=== PATIENT | male | born 1945 | race Caucasian/White ===

== ENCOUNTER 2022-05-20 12:59 | Outpatient (CLI) | payer MEDICARE, SELFPAY ==
--- NOTE | ~2022-05-20 | US_ITS ---
EXAMINATION: US venous doppler [facility] DATE: 05/20/2022 14:08 INDICATION: Bilateral lower limb edema TECHNIQUE: Ron scale images without and with compression and Doppler images of the bilateral lower e xtremity veins were obtained. COMPARISON: None FINDINGS: The right common femoral vein, profunda femoral vein, femoral vein, popliteal vein, peroneal trunk, p osterior tibial veins, and greater saphenous vein are patent. There is superficial thrombosis of the varicose veins of the right lower limb. The left common femoral vein, profunda femoral vein, femoral vein, popliteal vein, peroneal trunk, po sterior tibial veins, and greater saphenous vein are patent. IMPRESSION: 1. No evidence of deep venous thrombosis. 2. Superficial thrombosis of varicose veins of the right lower limb. Reviewed, dictated and finalized at location B. [employer]
== END 2022-05-20 13:00 | disposition home or self-care (01) ==
PROVIDERS: PCP Family Medicine; Visit Provider Internal Medicine Cardiovascular Disease
DX: I82.811 Embolism and thrombosis of superficial veins of right lower extremity (principal); I48.91 Unspecified atrial fibrillation; R60.9 Edema, unspecified
CPT/HCPCS: 93970

== ENCOUNTER 2022-08-20 15:40 | Outpatient (CLI) | payer MEDICARE, SELFPAY ==
--- NOTE | ~2022-08-20 | US_ITS ---
EXAMINATION: US venous doppler [facility] DATE: 08/20/2022 16:21 INDICATION: Embolism and thrombosis of superficial veins of the right lower limb TECHNIQUE: Grayscale ultrasound images without and with compression and Doppler ultrasound images of the right lower extremity veins were obtained. COMPARISON: None. FINDINGS: The visualized portions of right common femoral vein, profunda (deep) femoral vein, femoral vein, pop liteal vein, peroneal trunk, posterior tibial veins, peroneal veins, gastrocnemius vein and greater s aphenous vein outflow are patent. Again seen is a noncompressible thrombosed superficial vein with no internal flow on color Doppler, likely the lesser saphenous vein at the posterior right calf with so me shadowing calcification suggesting this is chronic. IMPRESSION: 1. No deep venous thrombosis in the right lower limb. 2. 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 Reviewed, dictated and finalized at location L. IMPRESSION: 1. No deep venous thrombosis in the right lower limb. 2. Chronic thrombus of the right lesser saphenous vein at the posterior right c halfway.
== END 2022-08-20 15:41 | disposition home or self-care (01) ==
PROVIDERS: PCP Family Medicine; Visit Provider Internal Medicine Cardiovascular Disease
DX: I82.811 Embolism and thrombosis of superficial veins of right lower extremity (principal)
CPT/HCPCS: 93971

== ENCOUNTER → 2022-09-11 08:25 | Outpatient (CLI) | payer MEDICARE, SELFPAY ==
--- NOTE | ~2022-09-11 | US_ITS ---
EXAMINATION: US carotid duplex BI DATE: 09/11/2022 08:47 INDICATION: Carotid artery stenosis TECHNIQUE: Grayscale, color Doppler, and pulsed Doppler images of the cervical carotid arteries were obtained. The degree of vessel stenosis is placed in one of the following categories: normal, <50%, 5 0-69%, >=70% but less than near-occlusion, near-occlusion, or total occlusion. Note that percent sten osis relative to normal distal artery lumen diameter is indirectly measured from velocity measurement s as described by Tacho, et al. Radiology 2003; 229:[id number]. COMPARISON: None. FINDINGS: RIGHT: The right common carotid artery (CCA) peak systolic velocity (PSV) is 82 cm/s. The right internal car otid artery (ICA) PSV is 66 cm/s. The right ICA end-diastolic velocity (EDV) is 24 cm/s. The right IC A/CCA PSV ratio is 0.8. Grayscale and color Doppler images yield an estimate of <50% diameter reducti on from plaque in the ICA. The external carotid artery (ECA) PSV is 93 cm/s. There is antegrade flow in the right vertebral artery. LEFT: The left CCA PSV is 104 cm/s. The left ICA PSV is 79 cm/s. The left ICA EDV is 38 cm/s. The left ICA/ CCA PSV ratio is 0.8. Grayscale and color Doppler images yield an estimate of <50% diameter reduction from plaque in the ICA. The ECA PSV is 93 cm/s. There is antegrade flow in the left vertebral artery . IMPRESSION: 1. <50% stenosis in the right internal carotid artery. 2. <50% stenosis in the left internal carotid artery. Reviewed, dictated and finalized at location A.
== END ==
PROVIDERS: PCP Family Medicine; Visit Provider Physician Assistant
DX: I65.23 Occlusion and stenosis of bilateral carotid arteries (principal)
CPT/HCPCS: 93880

== ENCOUNTER → 2022-10-12 11:35 | Outpatient (CLI) | payer MEDICARE, SELFPAY ==
--- NOTE | ~2022-10-12 | XR_ITS ---
Right Knee Technique: AP, lateral, and sunrise views were obtained. Clinical History: Pain Findings: No fracture or dislocation is seen. Osseous alignment is anatomic. Mild tricompartmental de generative changes present. Soft tissues are unremarkable. No joint effusion is seen. Impression: Mild tricompartmental osteoarthritis. Reviewed, dictated and finalized at location . Impression: Mild tricompartmental osteoarthritis.
== END ==
PROVIDERS: PCP Family Medicine; Visit Provider Physician Assistant
DX: M17.11 Unilateral primary osteoarthritis, right knee (principal)
CPT/HCPCS: 73562

== ENCOUNTER 2023-05-07 09:32 | Outpatient (CLI) | payer OTHER, SELFPAY ==
[2023-05-07 12:05] LABS: Basophils Absolute Auto 0.1 K/mm3 (0.0-0.1); Basophils Percent Auto 1.3 % (0.2-1.2); Eosinophils Absolute Auto 0.3 K/mm3 (0-0.3); Eosinophils Percent Auto 4.8 % (0-4.4); Hematocrit 43.3 % (42.0-52.0); Hemoglobin 13.6 g/dL (14.0-18.0); Immature Granulocyte Absolute 0.01 K/mm3 (0.00-0.031); Immature Granulocyte Percent A 0.2 % (0-0.5); Lymphocytes Absolute Auto 2.54 K/mm3 (0.9-3.2); Lymphocytes Percent Auto 42.3 % (18.3-44.2); Mean Corpuscular HGB Conc 31.4 g/dl (32-36); Mean Corpuscular Hemoglobin 30.5 pg (26-34); Mean Corpuscular Volume 97.1 fl (80-100); Mean Platelet Volume 10.9 fl (7.4-10.4); Monocytes Absolute Auto 0.7 K/mm3 (0.1-0.6); Monocytes Percent Auto 10.8 % (2.6-8.5); Neutrophils Absolute Auto 2.4 K/mm3 (1.3-6.7); Neutrophils Percent Auto 40.6 % (45.5-73.1); Platelet Count Result 206 k/mm3 (150-375); Red Blood Count 4.46 M/mm3 (4.6-6.20); Red Cell Distribution Width 13.7 % (11.5-14.5)
[2023-05-07 12:26] LABS: Alanine Aminotransferase 35 U/L (6-50); Albumin Level 3.8 g/dL (3.5-5.1); Alkaline Phosphatase 50 U/L (38-126); Anion Gap 4 mmol/L (8-16); Aspartate Amino Transferase 48 U/L (17-59); Bilirubin,Total 0.7 mg/dL (0.2-1.3); Blood Urea Nitrogen 16 mg/dL (9-20); Calcium 8.7 mg/dL (8.4-10.2); Carbon Dioxide 27 mmol/L (22-30); Chloride 108 mmol/L (98-107); Cholesterol 209 mg/dL (0-200); Estimated Glomerular Filt Rate > 60; Glucose 86 mg/dL (65-110); HDL Direct 63 mg/dL; Potassium 4.4 mmol/L (3.4-5.0); Sodium 139 mmol/L (137-145); Triglycerides 49 mg/dL (<150)
[2023-05-07 12:39] LABS: LDL Cholesterol Direct 118 mg/dL
[2023-05-07 12:58] LABS: Prostate Specific Antigen 0.7 ng/mL (< OR = 4.0)
== END 2023-05-07 09:33 | disposition home or self-care (01) ==
PROVIDERS: PCP Family Medicine; Visit Provider Family Medicine
DX: Z12.5 Encounter for screening for malignant neoplasm of prostate (principal); I48.19 Other persistent atrial fibrillation; I65.29 Occlusion and stenosis of unspecified carotid artery
CPT/HCPCS: 36415; 80053; 80061; 84153; 84443; 85025; G0103

== ENCOUNTER 2023-07-03 12:43 | Emergency (ER) | payer OTHER, SELFPAY ==
--- NOTE | 2023-07-03 12:57 | ED.CHESTPAIN ---
HPI - Chest Pain General Chief Complaint: Chest Pain Stated Complaint: Heart attack symptoms Time Seen by Provider: 07/03/23 12:55 Source: patient Mode of arrival: ambulatory Limitations: no limitations History of Present Illness HPI narrative: 77 yo M presents with c/o L sided CP radiating to L arm and feeling light headed for past few hours. Denies N/V. Hx of afib. pt states a fib controlled and does not take any medications for it . All systems reviewed and negative except as noted above. Related Data Home Medications Medication Instructions Recorded Confirmed multivitamin 1 tablet PO DAILY 05/12/19 07/03/23 cod liver oil 5 ml PO DAILY 05/14/20 07/03/23 Allergies Allergy/AdvReac Type Severity Reaction Status Date / Time Penicillins Allergy Unknown Unknown Verified 07/03/23 12:57 Review of Systems Review of Systems: CONSTITUTIONAL: Denies fever, chills, or sweats. EYES: Denies visual changes, redness, or discharge. ENT: Denies rhinorrhea, congestion, sore throat, or otalgia. CARDIOVASCULAR: Reports chest pain. Denies palpitations, or edema. RESPIRATORY: Denies cough or dyspnea. GASTROINTESTINAL: Denies abdominal pain, nausea, vomiting, or diarrhea. GENITOURINARY: Denies dysuria or hematuria. SKIN: Denies rash or itching. MUSCULOSKELETAL: Denies back pain, joint pain, or myalgia. NEUROLOGIC: Denies headache, numbness, or weakness. PSYCHIATRIC: Denies anxiety or depression. All other systems reviewed are negative, except as documented in HPI. [facility] Past Medical History Medical History Memory change Tendonitis of left rotator cuff Family History Family History Mother Family history of malignant neoplasm of breast in first degree relative Social History Social History (Updated 03/02/23 @ 14:59 by Carol Stevenson MA) Smoking status: Never smoker Alcohol intake: current Drinks per week: 14 Substance use: never Substance use type: does not use Lack of Transportation: No Lack of Food: Never True Current Housing: Decline to Answer Concerned About Future Housing: Decline to Answer Difficulty Paying Gas/Electric Bills: Decline to Answer Difficulty Paying for Meds: Decline to Answer Currently Unemployed: Decline to Answer Education: Decline to Answer Difficulty w/ Childcare or Family Care: Decline to Answer Comments At time of signature, agree with nursing past medical, surgical, social and family history. There is no relevant family history pertinent to the presenting complaint. Exam Narrative: GENERAL: This is a well-nourished, well-developed patient, in no apparent distress. HEAD: normocephalic, atraumatic. EYES: PERRL. Sclera clear/white. Vision is grossly intact. EARS: External ears normal NOSE: External nose normal NECK: Neck supple, non-tender without lymphadenopathy, masses or thyromegaly. CARDIOVASCULAR: Irregular rhythm without murmurs, gallops, or rubs. RESPIRATORY: Clear to auscultation. Breath sounds equal bilaterally. No wheezes, rales, or rhonchi. SKIN: warm, Dry, intact with no suspicious lesions or rash, good texture and turgor. NEURO: awake, alert, and oriented to person, place and time. There were no obvious focal neurologic abnormalities. EXTREMITIES: No joint tenderness, effusion, or edema noted. Course Course Level of Care: Express Care Visit Transfer Transfered to: [facility] Transportation: Other (Private car) Transfer rationale: Transferring patient to ER to rule out CA. EKG AFib. Accepting physician: Dr. Ribeiro MDM - Chest Pain MDM Narrative Medical decision making narrative: EKG atrial fib, HR 77, no ischemia. HR on monitor 80s to 100s. transferring to ER for further evaluation of CP. Discharge Plan Discharge Clinical Impression: Chest pain, Atrial fibrillation Patient Disposition: Acute
[2023-07-03 12:58] VITALS: BP 160/107; PULSE 86; RESP 18; TEMP 37.6; O2SAT 99
--- NOTE | 2023-07-03 12:59 | ECG_ITS ---
Measurements Intervals [place] Rate: 77 P: [place]: 0 QRS: 51 QRSD: 100 T: 0 QT: 380 QTc: 432 Interpretive Statements ATRIAL FIBRILLATION INCOMPLETE RIGHT BUNDLE BRANCH BLOCK NONSPECIFIC ST-T WAVE ABNORMALITY- INFERIOR LEADS BASELINE ARTIFACT- I, II, AVR, AVL, AVF ABNORMAL ECG NO PREVIOUS ECG AVAILABLE FOR COMPARISON Electronically Signed On 07-03-2023 17:50:15 CDT by Sai Rasmussen D.O.
[2023-07-03 13:09] VITALS: BP 160/107; PULSE 86; RESP 18; TEMP 37.6; O2SAT 99
== END 2023-07-03 13:00 | disposition short-term general hospital (02) ==
PROVIDERS: Emergency Provider Nurse Practitioner Family; PCP Family Medicine
DX: R07.9 Chest pain, unspecified (principal); I48.91 Unspecified atrial fibrillation; I45.10 Unspecified right bundle-branch block
CPT/HCPCS: 93005; 99213; G0463

== ENCOUNTER 2023-07-03 13:24 | Inpatient (IN) | payer OTHER, SELFPAY ==
[2023-07-03] VITALS (17 sets, daily range): BP systolic 134–207; BP diastolic 79–179; PULSE 57–87; RESP 14–23; TEMP 36.1–36.6; O2SAT 95–100
--- NOTE | ~2023-07-03 | XR_ITS ---
EXAMINATION: XR chest 2V Exam Date/Time: 07/03/2023 13:53 CDT HISTORY: Chest Pain. Dizzy Comparison: None. RESULT: Lines, tubes, and devices: None. Lungs and pleura: Mild senescent change, otherwise clear. Cardiomediastinal silhouette: Normal heart size. Arch calcification. Other: No acute osseous or upper abdominal finding. IMPRESSION: No acute cardiopulmonary process. Reviewed, dictated and finalized at location K.
--- NOTE | 2023-07-03 13:25 | ECG_ITS ---
Measurements Intervals [place] Rate: 72 P: [place]: 0 QRS: 31 QRSD: 92 T: 25 QT: 394 QTc: 431 Interpretive Statements ATRIAL FIBRILLATION INCOMPLETE RIGHT BUNDLE BRANCH BLOCK ABNORMAL ECG COMPARED TO ECG 07/03/2023 11:53:28 NO SIGNIFICANT CHANGES Electronically Signed On 07-03-2023 17:50:33 CDT by Sai Rasmussen D.O.
[2023-07-03 13:41] LABS: Basophils Absolute Auto 0.1 K/mm3 (0.0-0.1); Basophils Percent Auto 0.8 % (0.2-1.2); Eosinophils Absolute Auto 0.1 K/mm3 (0-0.3); Eosinophils Percent Auto 0.6 % (0-4.4); Hematocrit 47.1 % (42.0-52.0); Hemoglobin 15.1 g/dL (14.0-18.0); Immature Granulocyte Absolute 0.03 K/mm3 (0.00-0.031); Immature Granulocyte Percent A 0.4 % (0-0.5); Lymphocytes Absolute Auto 1.84 K/mm3 (0.9-3.2); Lymphocytes Percent Auto 21.8 % (18.3-44.2); Mean Corpuscular HGB Conc 32.1 g/dl (32-36); Mean Corpuscular Volume 93.6 fl (80-100); Monocytes Absolute Auto 0.5 K/mm3 (0.1-0.6); Monocytes Percent Auto 6.4 % (2.6-8.5); Neutrophils Absolute Auto 5.9 K/mm3 (1.3-6.7); Platelet Count Result 201 k/mm3 (150-375); Red Blood Count 5.03 M/mm3 (4.6-6.20); Red Cell Distribution Width 13.3 % (11.5-14.5); White Blood Count 8.4 K/mm3 (4.5-10.0)
[2023-07-03 13:51] LABS: Alanine Aminotransferase 32 U/L (6-50); Albumin Level 4.4 g/dL (3.5-5.1); Alkaline Phosphatase 59 U/L (38-126); Anion Gap 5 mmol/L (8-16); Aspartate Amino Transferase 34 U/L (17-59); Bilirubin,Total 0.7 mg/dL (0.2-1.3); Blood Urea Nitrogen 16 mg/dL (9-20); Calcium 9.5 mg/dL (8.4-10.2); Carbon Dioxide 29 mmol/L (22-30); Chloride 103 mmol/L (98-107); Estimated CRCL calculation 64 ml/min; Estimated Glomerular Filt Rate > 60; Glucose 117 mg/dL (65-110); Lipase 56 U/L (23-300); Sodium 137 mmol/L (137-145)
[2023-07-03 13:55] LABS: Prothrombin Time 13.5 Seconds (11.1-14.7)
[2023-07-03 13:56] LABS: Partial Thromboplastin Time 28.2 Seconds (22.3-36.8)
--- NOTE | 2023-07-03 14:20 | ED.CHESTPAIN ---
HPI - Chest Pain General Chief Complaint: Chest Pain Stated Complaint: Chest Pain, Dizzy Time Seen by Provider: 07/03/23 14:14 History of Present Illness HPI narrative: Patient is a 77-year-old male with history of chronic a.fib, not on aspirin or anticoagulation here with chest pain. Patient notes that this morning he was doing pushups in his home when he began experiencing some left upper chest wall pain radiating into his left shoulder and bilateral neck. He states that he has ongoing left shoulder issues so he initially did not think anything of it. He then was doing some pull ups when he began feeling light headed and feeling like he may pass out. This prompted him to go to an urgent care to be seen. Patient notes that he was sent from the Urgent Care for ongoing chest pain. He continues to have a mild pain in his left shoulder and upper left chest wall, rates it around a 1 to 2/10, notes that it is an aching sensation. He does note that he has had several high blood pressure readings throughout the day today with systolics being greater than 200. He does not suffer from hypertension traditionally, does not take antihypertensives. Related Data Home Medications Medication Instructions Recorded Confirmed multivitamin 1 tablet PO DAILY 05/12/19 07/03/23 cod liver oil 5 ml PO DAILY 05/14/20 07/03/23 Allergies Allergy/AdvReac Type Severity Reaction Status Date / Time Penicillins Allergy Unknown Unknown Verified 07/03/23 14:21 Review of Systems Review of Systems: All systems reviewed & are unremarkable except as noted in HPI and below PMFSH Past Medical History Medical History Memory change Tendonitis of left rotator cuff Family History Family History Mother Family history of malignant neoplasm of breast in first degree relative Social History Social History (Updated 03/02/23 @ 14:59 by Carol Stevenson MA) Smoking status: Never smoker Alcohol intake: current Drinks per week: 14 Substance use: never Substance use type: does not use Lack of Transportation: No Lack of Food: Never True Current Housing: Decline to Answer Concerned About Future Housing: Decline to Answer Difficulty Paying Gas/Electric Bills: Decline to Answer Difficulty Paying for Meds: Decline to Answer Currently Unemployed: Decline to Answer Education: Decline to Answer Difficulty w/ Childcare or Family Care: Decline to Answer Exam Narrative: GENERAL: Well-appearing, well-nourished, and in no acute distress. HEAD: Normocephalic, atraumatic. EYES: PERRLA and EOMI. ENT: Nares clear. Mucous membranes moist. NECK: Supple. CHEST: Clear to auscultation. No respiratory distress. HEART: Regular rate and rhythm. Normal peripheral pulses. ABDOMEN: Soft, nontender, nondistended. EXTREMITIES: Normal range of motion. No edema. SKIN: Warm, dry, no rash. NEURO: No focal deficits. Alert and oriented x3. PSYCH: Normal mood and affect. Course Course Emergency Course: Chart review performed, patient here with chest pain from Urgent Care. He was experiencing chest pain and dizziness radiating into his left arm while working out lifting weights. [place] express care note reviewed, they describe left-sided chest pain radiating into the left arm and lightheaded feeling. History of AFib, reportedly does not take any medications for it. Triage chest pain protocol results reviewed, CBC unremarkable, electrolytes within normal limits, normal renal function, initial troponin elevated at 0.080. Patient seen evaluated, nontoxic appearing. Blood pressure remains around 200 systolic. Concern for ACS versus type 2 demand ischemia due to hypertension. Will do nitro trial for both ongoing chest pain as well as blood pressure. Advised hospitalization for NSTEMI and poorly controlled blood pressure, patient agreeab
[2023-07-03] MEDS: NITROGLYCERIN SL 0.4 MG TABLET SUBLINGUAL (14:44)
--- NOTE | 2023-07-03 15:02 | PC.NURSE ---
1444: 1st dose of 0.4mg sublingual nitroglycerin given 1449: Pt reports no change in chest pain, 2nd dose 0.4mg sublingual nitroglycerin given 1454: Pt reports no change in chest pain, 3rd dose 0.4mg sublingual nitroglycerin given 1459: Pt reports chest pain is now a 1 out of 10, EDP made aware
[2023-07-03] MEDS: ONDANSETRON INJ 4 MG/2 ML VIAL IV PUSH (15:24)
[2023-07-03] MEDS: MORPHINE SULFATE (*CRX) 4 MG/ML INJ IV PUSH (15:26)
--- NOTE | 2023-07-03 16:28 | PM.IMHP ---
H&P: HPI History of Present Illness Date/Time: 07/03/23 16:28 Chief Complaint: Chest Pain Narrative: 77 y/o M presents here with CP with PMH of chronic AFib not on anticoagulation or medication. Patient presents here from home for evaluation of chest pain and dizziness. Pain began while he was lifting weights and doing push ups. Described chest pain as dull, left sided, with radiation into left arm and bilateral neck. Associated lightheaded/pres-syncopal sensation and diaphoresis. Patient then took his BP and noted it was elevated at 210/130. Aggravating Factors: none identified. Alleviating Factors: morphine and nitro SL. Patient took 81 mg of ASA at home without resolution of symptoms. Lasted from 10:00 when it started and lasted until 15:00 when he was given medication in the ED. Initially sought care at Urgent Care and was directed to the ED after he was found to be profoundly hypertensive with a systolic in the 200s. No prior history of HTN. No current chest discomfort, neck pain, or pain into shoulder. No diaphoresis or SOB. Denied palpitations or indigestion. Initial VS at presentation: 97.3 F, HR 70, RR 20, 160/100, and 100% on RA. ED workup showed: unremarkable CBC, unremarkable metabolic panel, and initial troponin 0.080. CXR showed no acute cardiopulmonary process. Initial EKG showed atrial fibrillation with a rate of 77 and nonspecific T-wave abnormality. 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 Persistent atrial fibrillation Tendonitis of left rotator cuff Family History Family History Mother Family history of malignant neoplasm of breast in first degree relative Social History Social History Smoking status: Never smoker Alcohol intake: current Drinks per week: 7 Substance use: never Substance use type: does not use Do You Feel Safe in your Home?: Yes Lack of Transportation: No Lack of Food: Never True Current Housing: I Have Housing Concerned About Future Housing: No Difficulty Paying Gas/Electric Bills: No Difficulty Paying for Meds: No Currently Unemployed: No Education: Don't Know Difficulty w/ Childcare or Family Care: No Spiritual care concerns: Yes Meds Home Medications and Allergies Home Medications Medication Instructions Recorded Confirmed Type No Home Medications 07/03/23 07/03/23 History Allergies Allergy/AdvReac Type Severity Reaction Status Date / Time Penicillins Allergy Unknown Unknown Verified 07/03/23 14:21 Vital Signs Vital Signs - 24 hr 07/03/23 13:33 07/03/23 14:21 07/03/23 14:23 Temperature 97.3 F L Pulse Rate 70 Respiratory Rate 20 Blood Pressure 160/100 H Pulse Oximetry 100 100 99 Oxygen Delivery Room Air Room Air Room Air 07/03/23 14:23 07/03/23 14:32 07/03/23 14:44 Temperature Pulse Rate 72 84 75 Respiratory Rate 18 21 H Blood Pressure 207/179 H 173/92 H Pulse Oximetry 100 100 Oxygen Delivery 07/03/23 14:49 07/03/23 14:54 07/03/23 14:59 Temperature Pulse Rate 76 87 77 Respiratory Rate 20 23 H 21 H Blood Pressure 155/101 H 146/94 H 134/93 H Pulse Oximetry 99 98 97 Oxygen Delivery 07/03/23 15:28 Temperature Pulse Rate 66 Respiratory Rate 19 Blood Pressure 138/92 H Pulse Oximetry 99 Oxygen Delivery Exam Const: General: comfortable and no acute distress Other: , male, nontocix appearance HENMT: Face/Nose/Sinus: Normal nares present Mouth: Yes moist mucous membranes Eye
--- NOTE | 2023-07-03 16:32 | ECG_ITS ---
Measurements Intervals [place] Rate: 67 P: [place]: 0 QRS: 36 QRSD: 89 T: 31 QT: 421 QTc: 445 Interpretive Statements ATRIAL FIBRILLATION INCOMPLETE RIGHT BUNDLE BRANCH BLOCK ABNORMAL ECG COMPARED TO ECG 07/03/2023 13:29:23 NO SIGNIFICANT CHANGES Electronically Signed On 07-03-2023 17:50:46 CDT by Sai Rasmussen D.O.
[2023-07-03 17:19] LABS: Troponin I 0.477 ng/mL (0.000-0.034)
--- NOTE | 2023-07-03 18:28 | PM.CNCAR ---
Assessment and Plan Assessment and plan (1) Chest pain: Code(s): R07.9 - Chest pain, unspecified Status: Acute Assessment and Plan: Currently asymptomatic. Troponin went from .08 to .477. EKG without ischemic ST changes. Trend troponin. Obtain echo on Wednesday. Start heparin drip, continue aspirin daily, start Metoprolol Tartate 12.5 mg BID, Atorvastatin 80 mg daily. (2) Elevated troponin: Code(s): R79.89 - Other specified abnormal findings of blood chemistry Status: Acute (3) Atrial fibrillation: Code(s): I48.91 - Unspecified atrial fibrillation Status: Acute Assessment and Plan: Asymptomatic. [id number] is 3 (4 if has CAD).? Discussed risks/benefits of anticoagulation and again he prefers Aspirin 325 mg daily despite knowing it is inferior to anticoagulation.? He has underlying conduction disorder and that is why his rate is not fast.? (4) Hypertension: Code(s): I10 - Essential (primary) hypertension Status: Acute Assessment and Plan: High. Start Metoprolol. (5) Mixed hyperlipidemia: Code(s): E78.2 - Mixed hyperlipidemia Status: Acute Assessment and Plan: Start Atorvastatin. 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 He has a history of dyslipidemia, atrial fibrillation, superficial venous thrombosis. Reports he was doing push ups and felt some discomfort in his left shoulder/chest area then mild mid chest discomfort and had some diaphoresis and some lightheadedness. He checked his BP and it was 200 SBP for 3 hours so he decided to go to Urgent care. After troponin returned mildly elevated he was directed to ER. He received NTG which did not do anything for his discomfort. He got morphine and his discomfort subsided. Currently he is chest pain free. He drinks 2 large cups of coffee and 2 beers a day.? 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 Denies chest pain, sob, palpitations, edema, dizziness. Cardiovascular Procedures Echo/MUGA:: Echo (EF 55-60%, mod LAE, mild MR, mild TR.) - 12/04/2014 Electrophysiology:: 05/20/22 EKG: Atrial fibrillation at 71 bpm. Holter (Atrial fibrillation at 32-164 bpm; average HR 82 bpm; 1,963 PVC's and 1 couplet. Intermittent pauses greater than 2 seconds with longest at 3.2 seconds at 18:52.) - 01/26/2019 EKG (Limited EKG with Life Screening: Atrial fib at 70 bpm.) - 10/09/2017 EKG (Atrial fibrillation, 81 bpm, borderline ST-T wave in inferior leads.) - 02/20/2016 EKG (ATRIAL FLUTTER AT V-RATE 98 BPM. ) - 02/19/2015 EKG (Atrial flutter, 4:1 conduction at 77 bpm.) - 11/20/2014 Stress Tests:: 09/11/22 Carotid duplex: <50% ICA stenosis bilaterally. 08/20/22 Venous duplex: No DVT. Chronic thrombosis of right lesser saphenous vein in posterior right calf. 05/20/22 Venous duplex: Superficial varicose vein thrombosis of RLL. Abd Ao Duplex (Life Line Screening: Normal abdominal aorta.) - 10/26/2014 Carotid Duplex (Life Line Screening: Mild bilateral ICA disease.) - 10/26/2014 Review of Systems Review of Systems: All systems reviewed & are unremarkable except as noted in HPI and below Constitutional: Constitutional: Reports as per HPI, Denies chills and Denies fever(s) Cardiovascular: Cardiovascular: Reports as per HPI and Reports chest pain Respiratory: Respiratory: Reports as per HPI and Denies dyspnea Gastrointestinal: Gastrointestinal: Reports as per HPI and Denies abdominal pain Genitourinary: Genitourinary: Reports as per HPI and Denies dysuria Musculoskeletal: Musculoskeletal: Reports as per HPI Neurologic: Reports as per HPI, Reports dizziness and Denies syncope [facility] Past Medical History Medical History (Updated 07/03/23 @ 18:33 by Sai Rasmussen DO) Carotid artery stenosis
[2023-07-03] MEDS: HEPARIN SOD/D5W 100 UNITS/ML 25,000 UNITS/250 ML BAG 10 UNITS IV CONT (19:20)
--- NOTE | 2023-07-03 20:28 | ECG_ITS ---
Measurements Intervals [place] Rate: 80 P: [place]: 0 QRS: 24 QRSD: 88 T: 3 QT: 368 QTc: 426 Interpretive Statements ATRIAL FIBRILLATION INCOMPLETE RIGHT BUNDLE BRANCH BLOCK NONSPECIFIC T-WAVE ABNORMALITY- INFERIOR LEADS BASELINE ARTIFACT- I, II, AVR, AVL, AVF, V2-V3 ABNORMAL ECG COMPARED TO ECG 07/03/2023 16:37:57 T-WAVE ABNORMALITY NOW PRESENT Electronically Signed On 07-03-2023 21:30:15 CDT by Sai Rasmussen D.O.
[2023-07-03] MEDS: METOPROLOL TARTRATE 12.5 MG TABLET PO (21:56)
[2023-07-03] MEDS: ATORVASTATIN 40 MG TABLET 80 MG PO (21:57)
[2023-07-04] VITALS (18 sets, daily range): BP systolic 115–171; BP diastolic 59–92; PULSE 45–90; RESP 14–18; TEMP 36.2–36.9; O2SAT 98–100
[2023-07-04 02:03] LABS: Basophils Absolute Auto 0.1 K/mm3 (0.0-0.1); Basophils Percent Auto 1.1 % (0.2-1.2); Eosinophils Absolute Auto 0.2 K/mm3 (0-0.3); Eosinophils Percent Auto 2.5 % (0-4.4); Hematocrit 43.3 % (42.0-52.0); Hemoglobin 14.3 g/dL (14.0-18.0); Immature Granulocyte Absolute 0.02 K/mm3 (0.00-0.031); Immature Granulocyte Percent A 0.3 % (0-0.5); Lymphocytes Absolute Auto 2.23 K/mm3 (0.9-3.2); Lymphocytes Percent Auto 29.8 % (18.3-44.2); Mean Corpuscular Hemoglobin 30.2 pg (26-34); Mean Corpuscular Volume 91.4 fl (80-100); Mean Platelet Volume 10.2 fl (7.4-10.4); Monocytes Absolute Auto 0.8 K/mm3 (0.1-0.6); Monocytes Percent Auto 10.3 % (2.6-8.5); Neutrophils Absolute Auto 4.2 K/mm3 (1.3-6.7); Platelet Count Result 208 k/mm3 (150-375); Red Blood Count 4.74 M/mm3 (4.6-6.20); Red Cell Distribution Width 13.2 % (11.5-14.5); White Blood Count 7.5 K/mm3 (4.5-10.0)
[2023-07-04 02:14] LABS: Partial Thromboplastin Time 56.1 Seconds (22.3-36.8)
[2023-07-04 02:15] LABS: Anion Gap 5 mmol/L (8-16); Blood Urea Nitrogen 12 mg/dL (9-20); Carbon Dioxide 26 mmol/L (22-30); Chloride 106 mmol/L (98-107); Estimated CRCL calculation 72 ml/min; Estimated Glomerular Filt Rate > 60; Glucose 99 mg/dL (65-110); Potassium 3.8 mmol/L (3.4-5.0); Sodium 137 mmol/L (137-145)
[2023-07-04] MEDS: HEPARIN SODIUM 5,000 UNITS/ML VIAL 3500 UNITS IV PUSH (02:25)
--- NOTE | 2023-07-04 07:50 | PM.PNCARD ---
Progress Note: A&P Assessment and Plan (1) Chest pain: Code(s): R07.9 - Chest pain, unspecified Status: Inactive Assessment and Plan: Probably NSTEMI. Currently asymptomatic. Troponin went from .08 to .477 to 1.4 to 4.2. EKG without ischemic ST changes. Check troponin in AM. Obtain echo on Wednesday. On heparin drip, continue aspirin daily, increase Metoprolol Tartate 25 mg BID, Atorvastatin 80 mg daily, start Losartan 50 mg daily. Discuss risks/benefits/alternative to LHC and he is agreeable to it. Keep NPO after midnight for LHC tomorrow. [place] [facility] [place]. (2) Elevated troponin: Code(s): R79.89 - Other specified abnormal findings of blood chemistry Status: Acute (3) Atrial fibrillation: Code(s): I48.91 - Unspecified atrial fibrillation Status: Inactive Assessment and Plan: Asymptomatic. [id number] is 3 (4 if has CAD).? Discussed risks/benefits of anticoagulation and again he prefers Aspirin 325 mg daily despite knowing it is inferior to anticoagulation.? He has underlying conduction disorder and that is why his rate is not fast.? (4) Hypertension: Code(s): I10 - Essential (primary) hypertension Status: Acute Assessment and Plan: High. Increase Metoprolol and start Losartan. (5) Mixed hyperlipidemia: Code(s): E78.2 - Mixed hyperlipidemia Status: Acute Assessment and Plan: On Atorvastatin. Subjective Date/time seen: 07/04/23 07:50 Interval history: Denies anymore chest pain or sob. Exam Const: General: cooperative, healthy appearing and comfortable Orientation/consciousness: oriented to person, oriented to place and oriented to time Resp: Auscultation: clear to auscultation bilaterally, no rales, no rhonchi and no wheezes Cardio: Rate: regular rate Rhythm: abnormal rhythm Heart sounds: no murmurs Peripheral pulses: dorsalis pedis present Neuro: General: oriented to person, oriented to place and oriented to time Extrem: Right lower extremity: no edema Left lower extremity: no edema Objective Data Vital Signs Vital Signs: Vital Signs - 24 hr 07/03/23 13:33 07/03/23 14:21 07/03/23 14:23 Temperature 97.3 F L Pulse Rate 70 Respiratory Rate 20 Blood Pressure 160/100 H Pulse Oximetry 100 100 99 Oxygen Delivery Room Air Room Air Room Air 07/03/23 14:23 07/03/23 14:32 07/03/23 14:44 Temperature Pulse Rate 72 84 75 Respiratory Rate 18 21 H Blood Pressure 207/179 H 173/92 H Pulse Oximetry 100 100 Oxygen Delivery 07/03/23 14:49 07/03/23 14:54 07/03/23 14:59 Temperature Pulse Rate 76 87 77 Respiratory Rate 20 23 H 21 H Blood Pressure 155/101 H 146/94 H 134/93 H Pulse Oximetry 99 98 97 Oxygen Delivery 07/03/23 15:28 07/03/23 16:38 07/03/23 16:41 Temperature 97.6 F Pulse Rate 66 68 57 L Respiratory Rate 19 21 H 17 Blood Pressure 138/92 H 143/87 H 143/87 H Pulse Oximetry 99 100 99 Oxygen Delivery 07/03/23 18:50 07/03/23 17:20 07/03/23 20:00 Temperature 98 F 97.5 F L Pulse Rate 75 75 Respiratory Rate 17 16 Blood Pressure 161/88 H 150/79 H Pulse Oximetry 100 100 Oxygen Delivery Room Air 07/03/23 21:56 07/03/23 20:00 07/03/23 20:00 Temperature Pulse Rate 87 69 75 Respiratory Rate 16 Blood Pressure Pulse Oximetry 100 Oxygen Delivery Room Air 07/03/23 22:00 07/03/23 23:38 07/04/23 00:00 Temperature 97 F L Pulse Rate 82 64 60 Respiratory Rate 14 Blood Pressure 144/84 H Pulse Oximetry 99 Oxygen Delivery 07/04/23 00:00 07/04/23 02:00 07/04/23 04:00 Temperature 97.2 F L Pulse Rate 64 60 68 Respiratory Rate 14 16 Blood Pressure 152/86 H Pulse Oximetry 99 98 Oxygen Delivery Room Air 07/04/23 04:00 07/04/23 04:00 07/04/23 06:00 Temperature Pulse Rate 63 63 78 Respiratory Rate 16 Blood Pressure Pulse Oximetry 98 Oxygen Delivery Room Air 07/03/23 21:50 Temperature Pulse Rate R
[2023-07-04 08:52] LABS: Partial Thromboplastin Time 153.7 Seconds (22.3-36.8)
[2023-07-04] MEDS: METOPROLOL TARTRATE 25 MG TABLET PO (09:14)
[2023-07-04] MEDS: LOSARTAN POTASSIUM 50 MG TABLET PO (09:14)
[2023-07-04] MEDS: ASPIRIN 81 MG ENTERIC TABLET PO (09:15)
[2023-07-04 16:39] LABS: Partial Thromboplastin Time 76.2 Seconds (22.3-36.8)
--- NOTE | 2023-07-04 18:10 | PM.IMPN ---
Progress Note: A&P Assessment and Plan (1) Elevated troponin: Code(s): R79.89 - Other specified abnormal findings of blood chemistry Status: Acute Assessment and Plan: - Patient admitted IMU under full inpatient status - EKG, initial: AFib with incomplete bundle branch block, nonspecific T-wave abnormality in inferior leads - Troponin: 0.080 -> 0.477 -> 1.470 -> 4.260 - ASA 324 given in ED, continue daily ASA - SL nitro PRN, given 1 dose in ED - given 4 mg of IVP morphine - cardiology formally diagnosed patient with the non ST elevated ND and planning cardiac catheterization in am - patient started on aspirin, nitrates, beta-bibiana and statin - previous lipid panel (05/07/23): Cholesterol 209 LDL direct 118 HDL 63 - keep patient NPO after midnight (2) Elevated blood pressure reading without diagnosis of hypertension: Code(s): R03.0 - Elevated blood-pressure reading, without diagnosis of hypertension Status: Acute Assessment and Plan: - BP upon arrival: 160/100, improved to 143/87 post SL nitro and 4 mg of morphine - no previous diagnosis of HTN, prehypertensive per PCP - starting metoprolol 12.5 mg BID - blood patient is now stable after starting cardiac meds (3) Persistent atrial fibrillation: Code(s): I48.19 - Other persistent atrial fibrillation Status: Acute Assessment and Plan: - EKG, initial: AFib, nonspecific T-wave abnormality. No previous for comparison. Awaiting formal read. - CHADSVasc: 3, 4 if CAD present - not on medication, not on anticoagulation - cardiology discussed risks versus benefits of anticoagulation, patient again prefers aspirin 325 mg despite knowing it is not the 1st line medication and inferior to anticoagulation. - started patient on metoprolol 12.5 mg p.o. b.i.d. Plan 07/03/2023: Patient here for ACS workup, arrived with chest pain and dizziness. Uptrending troponin. No overt ST elevations or depressions on initial EKG. Remains asymptomatic. Cardiology consulted and provided recommendations, see above. Admitted with telemetry. 07/04/2023: Patient diagnosed with non ST elevated ND, currently on IV heparin drip. Chest pain is under control on meds. Keep NPO after midnight for cardiac catheterization in am. Home Meds/Chronic Conditions -none Diet: heart healthy GI Prophylaxis: not indicated DVT Prophylaxis: SCDs Lines: peripherals Code Status: Full Code Time Spent With Patient Time with patient: 15 - 25 minutes Subjective Date/time seen: 07/04/23 18:10 Interval history: Patient lying in bed during my morning rounds. Currently on IV heparin drip. Cardiology planning to do cardiac catheterization in am. Chest pain is under control. Review of Systems Review of Systems: 14 systems were reviewed with pertinent positives and negatives per HPI. Except as documented in the HPI/progress notes, all other systems were reviewed and are negative. All systems reviewed & are unremarkable except as noted in HPI and below Exam Narrative: PHYSICAL EXAMINATION: Vital signs: Please see the chart General physical exam: Patient lying in bed, pleasant and cooperative with exam, appears to be tired and fatigued Head/eyes: Atraumatic, EOMI, PERRLA ENT: Moist mucous membranes, nasal passages clear Neck: Supple, full range of motion, trachea midline CVS: S1 + S2, regular rate and rhythm, no murmurs Respiratory: Bilaterally fair air entry in both lung hoff, mild B/L crackles, symmetric chest expansion, no distress Abdomen: Soft, non-tender, bowel sounds +ve, no organomegaly Extremities: No clubbing, no cyanosis, no edema, no calf tenderness Musculoskeletal: Moves all, adequate range of motion, no muscle spasms Skin: Warm, dry, no jaundice, no cyanosis Neurological: Awake, alert, oriented x 3, cranial nerves II-XII intact, no focal neurological deficits Psychiatric: Normal mood, non suicidal Objective Data Vital Signs
[2023-07-04] MEDS: HEPARIN SOD/D5W 100 UNITS/ML 25,000 UNITS/250 ML BAG 10 UNITS IV CONT (20:14)
[2023-07-04] MEDS: ATORVASTATIN 40 MG TABLET 80 MG PO (20:20)
[2023-07-04] MEDS: METOPROLOL TARTRATE 12.5 MG TABLET PO (20:21)
[2023-07-04 23:11] LABS: Partial Thromboplastin Time 73.7 Seconds (22.3-36.8)
[2023-07-05] VITALS (24 sets, daily range): BP systolic 99–125; BP diastolic 58–97; PULSE 46–81; RESP 14–18; TEMP 36.1–36.5; O2SAT 95–100
[2023-07-05 03:40] LABS: Basophils Absolute Auto 0.1 K/mm3 (0.0-0.1); Eosinophils Absolute Auto 0.3 K/mm3 (0-0.3); Eosinophils Percent Auto 3.1 % (0-4.4); Hematocrit 42.8 % (42.0-52.0); Hemoglobin 13.8 g/dL (14.0-18.0); Immature Granulocyte Absolute 0.02 K/mm3 (0.00-0.031); Immature Granulocyte Percent A 0.3 % (0-0.5); Lymphocytes Absolute Auto 3.24 K/mm3 (0.9-3.2); Lymphocytes Percent Auto 40.8 % (18.3-44.2); Mean Corpuscular HGB Conc 32.2 g/dl (32-36); Mean Corpuscular Hemoglobin 30.1 pg (26-34); Mean Corpuscular Volume 93.2 fl (80-100); Mean Platelet Volume 10.3 fl (7.4-10.4); Monocytes Absolute Auto 0.8 K/mm3 (0.1-0.6); Monocytes Percent Auto 9.4 % (2.6-8.5); Neutrophils Absolute Auto 3.6 K/mm3 (1.3-6.7); Neutrophils Percent Auto 45.4 % (45.5-73.1); Platelet Count Result 202 k/mm3 (150-375); Red Blood Count 4.59 M/mm3 (4.6-6.20); Red Cell Distribution Width 13.2 % (11.5-14.5)
[2023-07-05 03:52] LABS: Anion Gap 4 mmol/L (8-16); Blood Urea Nitrogen 13 mg/dL (9-20); Calcium 8.8 mg/dL (8.4-10.2); Carbon Dioxide 26 mmol/L (22-30); Chloride 107 mmol/L (98-107); Estimated CRCL calculation 58 ml/min; Estimated Glomerular Filt Rate > 60; Glucose 96 mg/dL (65-110); Potassium 4.1 mmol/L (3.4-5.0); Sodium 137 mmol/L (137-145)
[2023-07-05 03:53] LABS: Partial Thromboplastin Time 87.2 Seconds (22.3-36.8)
--- NOTE | 2023-07-05 06:00 | ECHO_ITS ---
Patient Info Name: Justin Michelle Age: 77 years : 1945 Gender: Male Ht: 70 in Wt: 179 lbs BSA: 2.01 m2 HR: 50 bpm BP: 125 / 72 mmHg Heart Rhythm: Atrial Fibrillation Technical Quality: Good Exam Date: 07/05/2023 8:42 AM Exam Location: Echo Lab Patient Status: Inpatient Admit Date: 07/03/2023 Staff Ordering Physician: Ariana Ortega MD Neon Installer: Inocencia Javed RDCS Attending Provider: Sekou Newell MD Exam Type: CA echo doppler color flow Study Info Indications - elevated troponin R07.9 - Chest pain, unspecified Complete two-dimensional, color flow and Doppler transthoracic echocardiogram is performed. Summary 1. Complete two-dimensional, color flow and Doppler transthoracic echocardiogram is performed. 2. Left ventricular chamber dimension is normal. 3. Left ventricular systolic function is normal, estimated at 60-65%. 4. There is mild concentric increased left ventricular wall thickness. 5. The left ventricular diastolic function is normal. 6. E/e' 8 is minimally elevated. 7. Atrial fibrillation. 8. Left atrial chamber dimension is severely enlarged. 9. Right atrial chamber dimension is moderately enlarged. 10. There is mild aortic valve sclerosis. 11. There is mild mitral valve regurgitation. 12. There is mild tricuspid valve regurgitation. 13. No pulmonary hypertension, estimated pulmonary arterial systolic pressure is 33 mmHg. Left Ventricle E/e' 8 is minimally elevated. Atrial fibrillation. Left ventricular chamber dimension is normal. Left ventricular systolic function is normal, estimated at 60-65%. There is mild concentric increased left ventricular wall thickness. The left ventricular diastolic function is normal. Right Ventricle Right ventricular systolic function is normal and with normal TAPSE 1.9 cm. Right ventricular chamber dimension is normal. Left Atria Left atrial chamber dimension is severely enlarged. Right Atria Right atrial chamber dimension is moderately enlarged. Aortic Valve The aortic valve is trileaflet. There is mild aortic valve sclerosis. There is no aortic valve stenosis. There is no aortic valve regurgitation. Pulmonic Valve There is no pulmonic regurgitation. Mitral Valve There is no mitral valve stenosis. There is mild mitral valve regurgitation. Tricuspid Valve There is mild tricuspid valve regurgitation. No pulmonary hypertension, estimated pulmonary arterial systolic pressure is 33 mmHg. Pericardium/Pleural There is no pericardial effusion. Inferior Vena Cava Normal inferior vena cava with >50% collapse upon inspiration consistent with normal right atrial pressure, 5 mmHg. Aorta The aortic root size at the sinus of Valsalva is normal. Left Ventricular Outflow Tract Name Value Normal LVOT 2D LVOT Diameter 2.1 cm LVOT Doppler LVOT Peak Gradient 3 mmHg LVOT Mean Gradient 1 mmHg LVOT VTI 15 cm LVOT VTI/AV VTI Ratio 0.6 LVOT Stroke Volume 52 ml LVOT CO 3.3 l/min LVOT CI 1.6 l/min/m2 Pulmonic Va
--- NOTE | 2023-07-05 07:48 | PM.PNCARD ---
Progress Note: A&P Assessment and Plan (1) Chest pain: Code(s): R07.9 - Chest pain, unspecified Status: Inactive Assessment and Plan: Probably NSTEMI. Currently asymptomatic. Troponin went from .08 to .477 to 1.4, peaked at 4.2. EKG without ischemic ST changes. Obtain echo today On heparin drip, continue aspirin daily, decrease Metoprolol Tartate 12.5 mg BID due to bradycardia, Atorvastatin 80 mg daily, Losartan 50 mg daily. Discuss risks/benefits/alternative to LHC and he is agreeable to it. Keep NPO for LHC. Consult HCG for it. (2) Elevated troponin: Code(s): R79.89 - Other specified abnormal findings of blood chemistry Status: Acute (3) Atrial fibrillation: Code(s): I48.91 - Unspecified atrial fibrillation Status: Inactive Assessment and Plan: Asymptomatic. [id number] is 3 (4 if has CAD).? Discussed risks/benefits of anticoagulation and again he prefers Aspirin 325 mg daily despite knowing it is inferior to anticoagulation.? He has underlying conduction disorder and that is why his rate is not fast.? (4) Hypertension: Code(s): I10 - Essential (primary) hypertension Status: Acute Assessment and Plan: Stable. On Metoprolol and Losartan. (5) Mixed hyperlipidemia: Code(s): E78.2 - Mixed hyperlipidemia Status: Acute Assessment and Plan: On Atorvastatin. Subjective Date/time seen: 07/05/23 07:48 Interval history: Denies anymore chest pain or sob. Exam Const: General: cooperative, healthy appearing and comfortable Orientation/consciousness: oriented to person, oriented to place and oriented to time Resp: Auscultation: clear to auscultation bilaterally, no rales, no rhonchi and no wheezes Cardio: Rate: regular rate Rhythm: abnormal rhythm Heart sounds: no murmurs Peripheral pulses: dorsalis pedis present Neuro: General: oriented to person, oriented to place and oriented to time Extrem: Right lower extremity: no edema Left lower extremity: no edema Objective Data Vital Signs Vital Signs: Vital Signs - 24 hr 07/04/23 08:00 07/04/23 09:14 07/04/23 08:00 Temperature 98.3 F Pulse Rate 58 L 61 73 Respiratory Rate 17 Blood Pressure 171/92 H Pulse Oximetry 99 Oxygen Delivery 07/04/23 10:00 07/04/23 11:10 07/04/23 08:00 Temperature 98.4 F Pulse Rate 62 51 L Respiratory Rate 17 Blood Pressure 136/82 Pulse Oximetry 100 Oxygen Delivery Room Air 07/04/23 12:00 07/04/23 14:00 07/04/23 15:21 Temperature 97.9 F Pulse Rate 57 L 48 L 59 L Respiratory Rate 17 Blood Pressure 123/70 Pulse Oximetry 100 Oxygen Delivery 07/04/23 12:00 07/04/23 16:00 07/04/23 16:00 Temperature Pulse Rate 57 L Respiratory Rate Blood Pressure Pulse Oximetry Oxygen Delivery Room Air Room Air 07/04/23 18:00 07/04/23 19:50 07/04/23 20:21 Temperature 97.9 F Pulse Rate 62 90 60 Respiratory Rate 18 Blood Pressure 115/85 Pulse Oximetry 100 Oxygen Delivery 07/04/23 20:00 07/04/23 22:00 07/04/23 20:00 Temperature Pulse Rate 60 45 L 45 L Respiratory Rate 18 Blood Pressure Pulse Oximetry 100 Oxygen Delivery Room Air 07/04/23 23:39 07/05/23 00:00 07/05/23 00:00 Temperature 98 F Pulse Rate 90 58 L 58 L Respiratory Rate 18 18 Blood Pressure 117/59 L Pulse Oximetry 99 99 Oxygen Delivery Room Air 07/05/23 02:00 07/05/23 04:12 07/05/23 04:00 Temperature 97 F L Pulse Rate 57 L 61 56 L Respiratory Rate 18 Blood Pressure 125/72 Pulse Oximetry 100 Oxygen Delivery 07/05/23 04:00 07/05/23 05:58 Temperature Pulse Rate 61 50 L Respiratory Rate 18 Blood Pressure Pulse Oximetry 100 Oxygen Delivery Room Air Intake/Output Intake/Output: Intake & Output 07/02/23 07/03/23 07/04/23 07/05/23 23:59 23:59 23:59 23:59 Intake Total 1241.2 406 Output Total 500 300 Balance -500 941.2 406 Meds/Results Med
[2023-07-05] MEDS: ASPIRIN 81 MG ENTERIC TABLET PO (11:20)
[2023-07-05] MEDS: METOPROLOL TARTRATE 12.5 MG TABLET PO ×2 (11:20→20:42)
[2023-07-05] MEDS: LOSARTAN POTASSIUM 50 MG TABLET PO (11:20)
--- NOTE | 2023-07-05 12:40 | WPDMODSED ---
Moderate Sedation Note-Pt Data Patient Data Diagnosis: elevated troponin chest pain following exertional activity Present Complaint: none Procedure to be performed/Plan: left heart catheterization Allergies Allergy/AdvReac Type Severity Reaction Status Date / Time Penicillins Allergy Unknown Unknown Verified 07/03/23 14:21 Home Medications Medication Instructions Recorded Confirmed Type No Home Medications 07/03/23 07/03/23 History Current Medications: Active Medications Aspirin (Aspirin 81 Mg Enteric Tablet) 81 mg PO QAM [facility] Last Admin: 07/05/23 11:20 Dose: 81 mg Atorvastatin Calcium (Atorvastatin 40 Mg Tablet) 80 mg PO QHS [facility] Last Admin: 07/04/23 20:20 Dose: 80 mg Heparin Sodium (Porcine) (Heparin Sodium 5,000 Units/Ml Vial) 4,000 units IV PUSH PRN PRN PRN Reason: aPTT less than 55 seconds Heparin Sodium (Porcine) (Heparin Sodium 5,000 Units/Ml Vial) 3,500 units IV PUSH PRN PRN PRN Reason: aPTT 55 - 70 seconds Last Admin: 07/04/23 02:25 Dose: 3,500 units Heparin Sodium/Dextrose (Heparin Sodium/D5w 100 Units/Ml) 25,000 units in 250 mls @ 10 mls/hr IV CONT .Q24H [facility]; Protocol Last Titration: 07/05/23 04:57 Dose: 1,000 units/hr, 10 mls/hr Losartan Potassium (Losartan Potassium 50 Mg Tablet) 50 mg PO DAILY [facility] Last Admin: 07/05/23 11:20 Dose: 50 mg Metoprolol Tartrate (Metoprolol Tartrate 12.5 Mg Tablet) 12.5 mg PO Q12HR [facility] Last Admin: 07/05/23 11:20 Dose: 12.5 mg Nitroglycerin (Nitroglycerin Sl 0.4 Mg Tablet) 0.4 mg SUBLINGUAL Q5MIN PRN PRN Reason: Chest Pain Perflutren Lipid Microsphere (Perflutren Lipid Microspheres 1.5 Ml Vial Diluted To 10 Ml Total Volume) 0 ml IV PUSH ONCE PRN; Protocol PRN Reason: adequate visualization Stop: 07/06/23 15:16 Sedation/Anesthesia: No previous sedation/anesthesia problems (including family history). 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 Persistent atrial fibrillation Tendonitis of left rotator cuff Family History Family History Mother Family history of malignant neoplasm of breast in first degree relative Social History Social History Smoking status: Never smoker Alcohol intake: current Drinks per week: 7 Substance use: never Substance use type: does not use Do You Feel Safe in your Home?: Yes Lack of Transportation: No Lack of Food: Never True Current Housing: I Have Housing Concerned About Future Housing: No Difficulty Paying Gas/Electric Bills: No Difficulty Paying for Meds: No Currently Unemployed: No Education: Don't Know Difficulty w/ Childcare or Family Care: No Spiritual care concerns: Yes Mod Sed Physical Exam Physical Exam Pre Procedural Exam: Normal: Appearance, Neck, Throat, Airway, Lungs, Heart Size, Heart Rate, Heart Rhythm, Neuro Exam and Extremities Hours since solid foods: 12 Hours since liquid intake: 12 Mallampati Classification: class II Internal Medicine - PN: Obj Da Vital Signs Vital Signs: Vital Signs - 24 hr 07/04/23 14:00 07/04/23 15:21 07/04/23 16:00 Temperature 36.6 C Pulse Rate 48 L 59 L 57 L Respiratory Rate 17 Blood Pressure 123/70 Pulse Oximetry 100 Oxygen Delivery 07/04/23 16:00 07/04/23 18:00 07/04/23 19:50 Temperature 36.6 C Pulse Rate 62 90 Respiratory Rate 18 Blood Pressure 115/85 Pulse Oximetry 100 Oxygen Delivery Room Air 07/04/23 20:21 07/04/23 20:00 07/04/23 22:00 Temperature Pulse Rate 60 60 45 L Respiratory Rate Blood Pressure Pulse Oximetry Oxygen Delivery 07/04/23 20:00 07/04/23 23:39
--- NOTE | 2023-07-05 13:07 | P.PCNCC_ITS ---
Cardiac Cath Procedure Note Date of procedure:: 07/05/23 Performing physician:: Sky Cortez MD Indication:: chest pain/ elevated troponin Brief clinical history:: this is a patient with chronic atrial fibrillation who experience some chest pain while he was exercising, doing pushups. He was seen for evaluation of this and his troponin level was found to be modestly elevated. Following this catheterization was recommended. Procedure Procedure performed:: Coronary angiography left ventriculography Angio-Seal to right femoral artery Sedation/Medication given:: fentanyl 50 mg Versed 2 mg case start time 12:46 p.m. case end time 1:03 p.m. sedation provided by Tati Smith RN, trained observer Access site:: right femoral artery Estimated blood loss:: 20 cc Procedure note:: patient was brought to the cardiac catheterization lab in the postabsorptive state where the right femoral triangle was prepared and draped in the normal fashion. Anesthesia was provided with 1% lidocaine infiltrated locally. Using modified Seldinger technique a 5 Croatian sheath was placed into the right femoral artery after this heart catheterization was carried out. A 5 Croatian angled pigtail catheter was used to inject left ventriculogram in the URIARTE projection and to measure left-sided hemodynamics the following this the left coronary artery was engaged and injected using a 5 Croatian FL4 catheter in the right coronary was then engaged and injected using a standard 5 Croatian JR4 catheter. the cineangiograms were then reviewed and the case was terminated. An angiogram was done of the femoral artery through the sheath after which a 6 Croatian Angio- Seal device was deployed with a good hemostatic result. 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 Findings:: Hemodynamics: Central aortic pressure 96 over 62 left ventricle 96 over 8 end-diastolic 12 there is no gradient on pullback across the aortic valve. Left ventricle: The LV is normal in size in all segments contract appropriately the global ejection fraction I would visually estimate to be 60- 65%. No regional wall motion abnormalities were seen. The left main coronary artery is widely patent the left anterior descending is a medium caliber artery extending down to the apex mild 30-40% stenosis in the midportion of the LAD there are no flow- limiting lesions in the LAD. The 1st diagonal branch has a ostial stenosis of 80%, the septal perforating complex has an ostial stenosis of 90%. Circumflex is a moderate caliber artery giving rise to 3 marginal branches the circumflex system is smooth and angiographically normal in appearance the right coronary artery is moderate to large in caliber dominant to the posterior circulation the RCA is smooth and angiographically normal in appearance Conclusion:: 1. right coronary dominant circulation with angiographically mild coronary disease involving the diagonal and septal branches of the LAD. These are both ostial lesions which should be treated medically rather than jeopardizing the LAD itself which has no significant flow-limiting disease 2. well-preserved left ventricular systolic function 3. chronic atrial fibrillation with slow ventricular response Sky Cortez MD [facility]
[2023-07-05] MEDS: SODIUM CHLORIDE 0.9% IV 1,000 ML 125 ML IV CONT (14:30)
--- NOTE | 2023-07-05 17:55 | PM.IMPN ---
Progress Note: A&P Assessment and Plan (1) Elevated troponin: Code(s): R79.89 - Other specified abnormal findings of blood chemistry Status: Acute Assessment and Plan: - Patient admitted IMU under full inpatient status - EKG, initial: AFib with incomplete bundle branch block, nonspecific T-wave abnormality in inferior leads - Troponin: 0.080 -> 0.477 -> 1.470 -> 4.260 -> 1.67 - ASA 324 given in ED, continue daily ASA - SL nitro PRN, given 1 dose in ED - given 4 mg of IVP morphine - cardiology diagnosed patient with the non ST elevated VT and planning cardiac catheterization in am - patient started on aspirin, nitrates, beta-bibiana and statin - previous lipid panel (05/07/23): Cholesterol 209 LDL direct 118 HDL 63 - patient underwent cardiac catheterization today and Cardiology recommended medical management (2) Elevated blood pressure reading without diagnosis of hypertension: Code(s): R03.0 - Elevated blood-pressure reading, without diagnosis of hypertension Status: Acute Assessment and Plan: - BP upon arrival: 160/100, improved to 143/87 post SL nitro and 4 mg of morphine - no previous diagnosis of HTN, prehypertensive per PCP - starting metoprolol 12.5 mg BID - blood patient is now stable after starting cardiac meds (3) Persistent atrial fibrillation: Code(s): I48.19 - Other persistent atrial fibrillation Status: Acute Assessment and Plan: - EKG, initial: AFib, nonspecific T-wave abnormality. No previous for comparison. Awaiting formal read. - CHADSVasc: 3, 4 if CAD present - not on medication, not on anticoagulation - cardiology discussed risks versus benefits of anticoagulation, patient again prefers aspirin 325 mg despite knowing it is not the 1st line medication and inferior to anticoagulation. - started patient on metoprolol 12.5 mg p.o. b.i.d. Plan 07/03/2023: Patient here for ACS workup, arrived with chest pain and dizziness. Uptrending troponin. No overt ST elevations or depressions on initial EKG. Remains asymptomatic. Cardiology consulted and provided recommendations, see above. Admitted with telemetry. 07/04/2023: Patient diagnosed with non ST elevated VT, currently on IV heparin drip. Chest pain is under control on meds. Keep NPO after midnight for cardiac catheterization in am. 07/05/2023: Patient underwent cardiac catheterization. Cardiology recommended medical management and recommended patient to stay in the hospital till tomorrow. I spoke with him in front of his family and convinced him to stay overnight. DC patient home in a.m. after cardiology evaluation on cardiac meds. Home Meds/Chronic Conditions -none Diet: heart healthy GI Prophylaxis: not indicated DVT Prophylaxis: SCDs Lines: peripherals Code Status: Full Code Time Spent With Patient Time with patient: 15 - 25 minutes Subjective Date/time seen: 07/05/23 17:55 Interval history: Patient seen and evaluated bedside before and after the cardiac catheterization. He wants to go home. Review of Systems Review of Systems: 14 systems were reviewed with pertinent positives and negatives per HPI. Except as documented in the HPI/progress notes, all other systems were reviewed and are negative. All systems reviewed & are unremarkable except as noted in HPI and below Exam Narrative: PHYSICAL EXAMINATION: Vital signs: Please see the chart General physical exam: Patient lying in bed, pleasant and cooperative with exam, appears to be tired and fatigued Head/eyes: Atraumatic, EOMI, PERRLA ENT: Moist mucous membranes, nasal passages clear Neck: Supple, full range of motion, trachea midline CVS: S1 + S2, regular rate and rhythm, no murmurs Respiratory: Bilaterally fair air entry in both lung hoff, mild B/L crackles, symmetric chest expansion, no distress Abdomen: Soft, non-tender, bowel sounds +ve, no organomegaly Extremities: No clubbing, no cyanosis, no genny
[2023-07-05] MEDS: ATORVASTATIN 40 MG TABLET 80 MG PO (20:33)
[2023-07-06] VITALS (8 sets, daily range): BP systolic 103–150; BP diastolic 58–66; PULSE 30–68; RESP 14–18; TEMP 36.3; O2SAT 99–100
--- NOTE | 2023-07-06 01:49 | PC.NURSE ---
Patient's heart rate 20's to 60's afib. patient states Doctor made a deal with him that he would not be woke during the night if he would stay one more night. Patient states he was going to leave when the 1 liter of saline was infused. Patient has been asymptomatic with his low heart rate. 2 to 4.5 seconds in between ventricular beats. Patient woke for vital signs to see if he was maintaining blood pressure and remaining asymptomatic. Continuous pulse ox placed on patient to assist in monitoring patient condition without waking him. BP @ 2300 104/65 with 99%pulse ox. No shortness of breath, denies chest pain or pressure. Denies dizziness or nausea. Patient states he feels fine and thinks there is something wrong with the equipment. patient's color and capillary refill is good. Continuing to monitor, the lowest pulse ox seen has been 96%. Charge nurse aware of situation.
[2023-07-06 05:25] LABS: Anion Gap 4 mmol/L (8-16); Blood Urea Nitrogen 18 mg/dL (9-20); Calcium 8.8 mg/dL (8.4-10.2); Carbon Dioxide 26 mmol/L (22-30); Chloride 111 mmol/L (98-107); Estimated CRCL calculation 58 ml/min; Estimated Glomerular Filt Rate > 60; Glucose 94 mg/dL (65-110); Potassium 4.5 mmol/L (3.4-5.0); Sodium 141 mmol/L (137-145)
[2023-07-06 06:57] LABS: Basophils Absolute Auto 0.1 K/mm3 (0.0-0.1); Basophils Percent Auto 0.8 % (0.2-1.2); Eosinophils Absolute Auto 0.2 K/mm3 (0-0.3); Eosinophils Percent Auto 3.1 % (0-4.4); Hemoglobin 13.7 g/dL (14.0-18.0); Immature Granulocyte Absolute 0.03 K/mm3 (0.00-0.031); Immature Granulocyte Percent A 0.5 % (0-0.5); Lymphocytes Absolute Auto 2.62 K/mm3 (0.9-3.2); Lymphocytes Percent Auto 40.1 % (18.3-44.2); Mean Corpuscular HGB Conc 31.9 g/dl (32-36); Mean Corpuscular Hemoglobin 30.2 pg (26-34); Mean Corpuscular Volume 94.7 fl (80-100); Mean Platelet Volume 11.1 fl (7.4-10.4); Monocytes Absolute Auto 0.8 K/mm3 (0.1-0.6); Monocytes Percent Auto 11.5 % (2.6-8.5); Neutrophils Absolute Auto 2.9 K/mm3 (1.3-6.7); Platelet Count Result 196 k/mm3 (150-375); Red Blood Count 4.54 M/mm3 (4.6-6.20); Red Cell Distribution Width 13.6 % (11.5-14.5); White Blood Count 6.5 K/mm3 (4.5-10.0)
--- NOTE | 2023-07-06 07:51 | PM.PNCARD ---
Progress Note: A&P Assessment and Plan (1) Chest pain: Code(s): R07.9 - Chest pain, unspecified Status: Inactive Assessment and Plan: Probably NSTEMI. Currently asymptomatic. Troponin went from .08 to .477 to 1.4, peaked at 4.2, then 1.7. EKG without ischemic ST changes. 07/05/23 [facility] with Dr. Cortez: Mid LAD 40% calcified plaque and on either side an ostial Diag 90% and ostial septal branch 90% stenosis; no PCI as that would risk flow in LAD. 07/05/23 Echo: EF 60-65%, mild LVH, mild MR/TR. Continue aspirin 81 mg daily and start Clopidogrel 75 mg daily for a year. Continue Atorvastatin 10 mg daily. Stopped Metoprolol as he got bradycardic into 30s bpm overnight. May d/c home from cardiology standpoint and f/u with me in 1 week. (2) Elevated troponin: Code(s): R79.89 - Other specified abnormal findings of blood chemistry Status: Acute (3) Atrial fibrillation: Code(s): I48.91 - Unspecified atrial fibrillation Status: Inactive Assessment and Plan: Asymptomatic. [id number] is 3.? Discussed risks/benefits of anticoagulation and again he prefers Aspirin 325 mg daily despite knowing it is inferior to anticoagulation.? He has underlying conduction disorder and that is why his rate is not fast.? Will treat with aspirin 81 mg and Clopidogrel. Once Clopidogrel is stopped in a year, consider changing to Eliquis if he is agreeable. (4) Hypertension: Code(s): I10 - Essential (primary) hypertension Status: Acute Assessment and Plan: Stable. His BP got low to 90's SBP, stopped Losartan. (5) Mixed hyperlipidemia: Code(s): E78.2 - Mixed hyperlipidemia Status: Acute Assessment and Plan: On Atorvastatin. Subjective Date/time seen: 07/06/23 07:51 Interval history: Denies anymore chest pain or sob. Right groin access site without pain/tenderness/bleeding. Exam Const: General: cooperative, healthy appearing and comfortable Orientation/consciousness: oriented to person, oriented to place and oriented to time Resp: Auscultation: clear to auscultation bilaterally, no rales, no rhonchi and no wheezes Cardio: Rate: bradycardic Rhythm: abnormal rhythm Heart sounds: no murmurs Peripheral pulses: dorsalis pedis present Neuro: General: oriented to person, oriented to place and oriented to time Extrem: Right lower extremity: no edema Left lower extremity: no edema Objective Data Vital Signs Vital Signs: Vital Signs - 24 hr 07/05/23 11:20 07/05/23 11:32 07/05/23 08:00 Temperature 97.6 F Pulse Rate 59 L 81 47 L Respiratory Rate 14 Blood Pressure 102/68 Pulse Oximetry 99 Oxygen Delivery 07/05/23 10:00 07/05/23 12:00 07/05/23 13:15 Temperature Pulse Rate 60 54 L 58 L Respiratory Rate 14 Blood Pressure 102/58 L Pulse Oximetry 100 Oxygen Delivery Room Air 07/05/23 13:30 07/05/23 13:45 07/05/23 14:00 Temperature Pulse Rate 58 L 50 L 50 L Respiratory Rate 14 14 16 Blood Pressure 102/67 103/63 101/74 Pulse Oximetry 98 95 98 Oxygen Delivery Room Air Room Air Room Air 07/05/23 14:30 07/05/23 17:00 07/05/23 18:06 Temperature 97.1 F L 97.7 F Pulse Rate 53 L 48 L 55 L Respiratory Rate 14 14 16 Blood Pressure 109/74 106/62 99/61 L Pulse Oximetry 97 99 99 Oxygen Delivery Room Air 07/05/23 19:52 07/05/23 20:42 07/05/23 16:00 Temperature 97.1 F L Pulse Rate 57 L 52 L 55 L Respiratory Rate 18 Blood Pressure 116/97 H Pulse Oximetry 99 Oxygen Delivery 07/05/23 18:00 07/05/23 08:00 07/05/23 12:00 Temperature Pulse Rate 46 L Respiratory Rate Blood Pressure Pulse Oximetry Oxygen Delivery Room Air Room Air 07/05/23 16:00 07/05/23 20:00 07/05/23 20:00 Temperature Pulse Rate 50 L 52 L Respiratory Rate 18 Blood Pressure Pulse Oximetry 99 Oxygen Delivery Room Air Room Air 07/06/23 00:00 07/05/23 22:00 07/06/23 00:00 Temperature Pulse Rate 52 L
[2023-07-06] MEDS: ASPIRIN 81 MG ENTERIC TABLET PO (09:21)
[2023-07-06] MEDS: CLOPIDOGREL BISULFATE 75 MG TABLET PO (09:21)
--- NOTE | 2023-07-06 10:02 | PM.DS ---
DS: Admitting Diagnosis Discharge Date 07/06/23 Admitting Diagnosis NSTEMI DS: Discharge Diagnosis Discharge Diagnosis (1) Persistent atrial fibrillation: Code(s): I48.19 - Other persistent atrial fibrillation Status: Acute (2) CAD (coronary artery disease), [place] coronary artery: Code(s): I25.10 - Atherosclerotic heart disease of [place] coronary artery without angina pectoris Status: Acute DS: Summary Hospital Course Reason for hospitalization: Chest Pain Hospital Course: 77 y/o M presented with CP with PMH of chronic AFib not on anticoagulation or medication. Underwent cardiac catheterization,?LHC showed Mid LAD 40% calcified plaque and on either side an ostial Diag 90% and ostial septal branch 90% stenosis. Discharged home on aspirin Plavix, statin./home in stable condition with advice to follow-up with cardiology in 1 week. Status at Discharge Functional status at discharge: independent ambulation Overall status at discharge: patient is back to baseline Time Spent with Patient Time attestation: Total time spent providing and/or coordinating discharge services: Time spent: Greater than 30 minutes Exam Const: General: cooperative, healthy appearing and comfortable Orientation/consciousness: oriented to person, oriented to place and oriented to time Resp: Auscultation: clear to auscultation bilaterally, no rales, no rhonchi and no wheezes Cardio: Rate: bradycardic Rhythm: abnormal rhythm Heart sounds: no murmurs Peripheral pulses: dorsalis pedis present Neuro: General: oriented to person, oriented to place and oriented to time Extrem: Right lower extremity: no edema Left lower extremity: no edema DS: Data Data Completed and Pending Labs on day of discharge: Labs from last 24 hours 07/06/23 04:36 WBC 6.5 RBC 4.54 L Hgb 13.7 L Hct 43.0 MCV 94.7 MCH 30.2 MCHC 31.9 L RDW 13.6 Plt Count 196 MPV 11.1 H Immature Gran % (Auto) 0.5 Neut % (Auto) 44.0 L Lymph % (Auto) 40.1 [place] % (Auto) 11.5 H Eos % (Auto) 3.1 Baso % (Auto) 0.8 Lymph # (Auto) 2.62 [place] # (Auto) 0.8 H Eos # (Auto) 0.2 Baso # (Auto) 0.1 Abs Immat Gran (auto) 0.03 Absolute Neuts (auto) 2.9 Absolute Nucleated RBC 0.000 Nucleated RBC % 0.0 APTT 29.0 Sodium 141 Potassium 4.5 Chloride 111 H Carbon Dioxide 26 Anion Gap 4 L BUN 18 Creatinine 1.00 Estim Creat Clear Calc 58 Estimated GFR > 60 Glucose 94 Calcium 8.8 Discharge Plan Discharge Attending physician on discharge: Madonna Diego Consulting providers: Sai Rasmussen; Jo Cruz; kSy Cortez; Rishabh Jaquez; Sekou Newell Discharging Clinician: Madonna Diego Anticipated Discharge Date/Time: 07/06/23 10:00 Patient Disposition: Home, Self-Care Activity: as tolerated Diet: heart healthy Discharge Instructions: [facility] [address] [place] [address] DISCHARGE INSTRUCTIONS - POST CARDIAC CATH Activity Restriction 1. No Driving for 24 hours 2. No lifting, pushing or pulling more than 10 LBS for 1 week 3. No strenuous activity or exercising for 1 week 4. Shower after 24 hours, do not soak in any water such as hot tubs or bath tubs Wound Care 1. Remove dressing 24 hours after your procedure prior to showering 2. Lather soap and water to puncture site and rinse then pat dry 3. You may apply a new band aid to the site
== END 2023-07-06 11:32 | disposition home or self-care (01) | DRG 281 ==
LOC: ANHED 15:35 → ANHIMU 16:55
PROVIDERS: Emergency Medicine; Family Medicine; Internal Medicine; Internal Medicine Cardiovascular Disease; Specialist; Student in an Organized Health Care Education/Training Program; Admitting Provider Internal Medicine; Emergency Provider Student in an Organized Health Care Education/Training Program; PCP Family Medicine; Visit Provider Internal Medicine
PROC: 4A023N7 Measurement of Cardiac Sampling and Pressure, Left Heart, Percutaneous Approach (ICD-10-PCS; CPT 93452; principal; 2023-07-05 12:00)
PROC: 4A023N7 Measurement of Cardiac Sampling and Pressure, Left Heart, Percutaneous Approach (ICD-10-PCS; 2023-07-05 12:00)
DX: I21.4 Non-ST elevation (NSTEMI) myocardial infarction (principal); I48.19 Other persistent atrial fibrillation; I25.10 Atherosclerotic heart disease of native coronary artery without angina pectoris; E78.2 Mixed hyperlipidemia; R79.89 Other specified abnormal findings of blood chemistry; R03.0 Elevated blood-pressure reading, without diagnosis of hypertension; Z86.718 Personal history of other venous thrombosis and embolism
CPT/HCPCS: 36415; 71046; 80048; 80053; 83690; 84484; 85025; 85610; 85730; 93005; 93306; 93458; 99285; A9270; C1760; C1887; C1894; G0269; J1644; J2250; J2270; J2405; J3010; J7030; J7040

== ENCOUNTER 2023-07-14 14:54 | Outpatient (CLI) | payer OTHER, SELFPAY ==
[2023-07-14 18:35] LABS: Basophils Absolute Auto 0.1 K/mm3 (0.0-0.1); Basophils Percent Auto 1.1 % (0.2-1.2); Eosinophils Absolute Auto 0.3 K/mm3 (0-0.3); Hematocrit 44.9 % (42.0-52.0); Hemoglobin 14.4 g/dL (14.0-18.0); Immature Granulocyte Absolute 0.03 K/mm3 (0.00-0.031); Immature Granulocyte Percent A 0.4 % (0-0.5); Lymphocytes Absolute Auto 3.68 K/mm3 (0.9-3.2); Lymphocytes Percent Auto 44.9 % (18.3-44.2); Mean Corpuscular HGB Conc 32.1 g/dl (32-36); Mean Corpuscular Volume 93.5 fl (80-100); Mean Platelet Volume 10.5 fl (7.4-10.4); Monocytes Absolute Auto 0.7 K/mm3 (0.1-0.6); Monocytes Percent Auto 8.5 % (2.6-8.5); Neutrophils Absolute Auto 3.5 K/mm3 (1.3-6.7); Neutrophils Percent Auto 42.1 % (45.5-73.1); Platelet Count Result 234 k/mm3 (150-375); Red Cell Distribution Width 13.2 % (11.5-14.5); White Blood Count 8.2 K/mm3 (4.5-10.0)
== END 2023-07-14 14:55 | disposition home or self-care (01) ==
LOC: ANHGOSHLAB 14:55
PROVIDERS: PCP Family Medicine; Visit Provider Family Medicine
DX: S70.11XA Contusion of right thigh, initial encounter (principal); X58.XXXA Exposure to other specified factors, initial encounter
CPT/HCPCS: 36415; 85025

== ENCOUNTER 2023-08-20 10:12 | Outpatient (CLI) | payer OTHER, SELFPAY ==
[2023-08-20 20:22] LABS: Alanine Aminotransferase 36 U/L (6-50); Albumin Level 4.3 g/dL (3.5-5.1); Alkaline Phosphatase 48 U/L (38-126); Anion Gap 7 mmol/L (4-12); Aspartate Amino Transferase 62 U/L (17-59); Bilirubin,Total 0.9 mg/dL (0.2-1.3); Blood Urea Nitrogen 12 mg/dL (9-20); Calcium 9.2 mg/dL (8.4-10.2); Carbon Dioxide 25 mmol/L (22-30); Chloride 106 mmol/L (98-107); Cholesterol 221 mg/dL (0-200); Estimated Glomerular Filt Rate > 60; Glucose 82 mg/dL (65-110); HDL Direct 55 mg/dL; Sodium 138 mmol/L (137-145); Triglycerides 57 mg/dL (<150)
[2023-08-20 20:33] LABS: LDL Cholesterol Direct 138 mg/dL
== END 2023-08-20 10:13 | disposition home or self-care (01) ==
LOC: ANHGOSHLAB 10:13
PROVIDERS: PCP Family Medicine; Visit Provider Internal Medicine Cardiovascular Disease
DX: E78.2 Mixed hyperlipidemia (principal)
CPT/HCPCS: 36415; 80053; 80061

== ENCOUNTER 2023-09-09 11:00 | Outpatient (RCR) | payer OTHER, SELFPAY ==
[2023-08-03 09:34] VITALS: PULSE 69
== END 2023-09-09 13:05 | disposition home or self-care (01) ==
LOC: ANHCPREHAB 11:00
PROVIDERS: PCP Family Medicine; Visit Provider Internal Medicine Cardiovascular Disease
DX: I50.89 Other heart failure (principal)
CPT/HCPCS: 93798

== ENCOUNTER 2023-11-16 08:41 | Outpatient (CLI) | payer OTHER, SELFPAY ==
[2023-11-16 18:46] LABS: Alanine Aminotransferase 29 U/L (6-50); Albumin Level 3.9 g/dL (3.5-5.1); Alkaline Phosphatase 54 U/L (38-126); Anion Gap 8 mmol/L (4-12); Aspartate Amino Transferase 52 U/L (17-59); Bilirubin,Total 0.6 mg/dL (0.2-1.3); Blood Urea Nitrogen 21 mg/dL (9-20); Calcium 9.2 mg/dL (8.4-10.2); Carbon Dioxide 27 mmol/L (22-30); Chloride 104 mmol/L (98-107); Cholesterol 207 mg/dL (0-200); Estimated Glomerular Filt Rate > 60; Glucose 84 mg/dL (65-110); HDL Direct 58 mg/dL; Potassium 4.2 mmol/L (3.4-5.0); Sodium 139 mmol/L (137-145); Triglycerides 73 mg/dL (<150)
[2023-11-16 19:02] LABS: LDL Cholesterol Direct 115 mg/dL
[2023-11-19 14:54] LABS: Vitamin D 1,25 (OH)2 Total 40 pg/mL (18-72); Vitamin D2 1,25 (OH)2 <8 pg/mL; Vitamin D3 1,25 (OH)2 40 pg/mL
== END 2023-11-16 08:42 | disposition home or self-care (01) ==
PROVIDERS: PCP Family Medicine; Visit Provider Internal Medicine Cardiovascular Disease
DX: E78.2 Mixed hyperlipidemia (principal); I25.10 Atherosclerotic heart disease of native coronary artery without angina pectoris; Z13.9 Encounter for screening, unspecified
CPT/HCPCS: 36415; 80053; 80061; 82652

== ENCOUNTER 2023-12-03 11:10 | Outpatient (CLI) | payer OTHER, SELFPAY ==
--- NOTE | ~2023-12-03 | US_ITS ---
EXAMINATION: US carotid duplex BI DATE: 12/03/2023 12:05 INDICATION: TECHNIQUE: Grayscale, color Doppler, and pulsed Doppler images of the cervical carotid arteries were obtained. The degree of vessel stenosis is placed in one of the following categories: normal, <50%, 5 0-69%, >=70% but less than near-occlusion, near-occlusion, or total occlusion. Note that percent sten osis relative to normal distal artery lumen diameter is indirectly measured from velocity measurement s as described by Tacho, et al. Radiology 2003; 229:340-346. Notes: Normal: Peak systolic velocity <125 centimeters/sec and no plaque <50%. Peak systolic velocity <125 ( EDV <40; ICA/CCA PSV ratio <2.0; used these factors only a tandem lesions or low cardiac output or co ntralateral disease) 50-69 %: PSV 125-230 (EDV 40-100; ratio 2-4) >= 70% but less than near occlusion: PSV greater than 230 (EDV > 100; ratio> 4.0) Near Occlusion: PSV that is variable; markedly narrowed lumen Occlusion: Absent flow on color/spectral Doppler and no lumen on cuellar scale. COMPARISON: Ultrasound dated 09/11/2022. FINDINGS: RIGHT: The right common carotid artery (CCA) peak systolic velocity (PSV) is 84 cm/s. The right internal car otid artery (ICA) PSV is 72 cm/s. The right ICA end-diastolic velocity (EDV) is 28 cm/s. The right IC A/CCA PSV ratio is 0.9. The external carotid artery (ECA) PSV is 69 cm/s. There is antegrade flow in the right vertebral artery. LEFT: The left CCA PSV is 80 cm/s. The left ICA PSV is 69 cm/s. The left ICA EDV is 32 cm/s. The left ICA/C CA PSV ratio is 0.9. The ECA PSV is 37 cm/s. There is antegrade flow in the left vertebral artery. I ncidental note is made of a left thyroid mass measuring 1.3 cm. IMPRESSION: 1. Less than 50% stenosis in the right internal carotid artery by sonographic criteria. 2. Less than 50% stenosis in the left internal carotid artery by sonographic criteria. 3: Left thyroid mass measuring 1.3 cm. Correlation with thyroid ultrasound recommended for risk strat ification. Reviewed, dictated and finalized at location B. IMPRESSION: 1. Less than 50% stenosis in the right internal carotid artery by sonographic c riteria. 2. Less than 50% stenosis in the left internal carotid artery by sonographic cr iteria. 3: Left thyroid mass measuring 1.3 cm. Correlation with thyroid ultrasound lee mmended for risk stratification.
== END 2023-12-03 11:11 | disposition home or self-care (01) ==
PROVIDERS: PCP Family Medicine; Visit Provider Internal Medicine Cardiovascular Disease
DX: Z09 Encounter for follow-up examination after completed treatment for conditions other than malignant neoplasm (principal); I25.10 Atherosclerotic heart disease of native coronary artery without angina pectoris; I65.23 Occlusion and stenosis of bilateral carotid arteries; E07.9 Disorder of thyroid, unspecified
CPT/HCPCS: 93880

== ENCOUNTER 2023-12-15 10:45 | Outpatient (CLI) | payer OTHER, SELFPAY ==
--- NOTE | ~2023-12-15 | US_ITS ---
EXAMINATION: US thyroid DATE: 12/15/2023 11:25 INDICATION: Left thyroid nodule. TECHNIQUE: Multiple ultrasound images of the thyroid were obtained. COMPARISON: None. FINDINGS: The right thyroid lobe measures 3.6 x 1.5 x 1.6 cm. The left thyroid lobe measures 3.7 x 1.8 x 2.0 c m. In the right thyroid lobe, there is a 2 mm nodule. In the left thyroid lobe, there is a 2.1 cm so lid, hypoechoic, wider than tall nodule with smooth margin without echogenic foci (TI-RADS TR4). In t he left thyroid lobe, there is a 7 mm mixed cystic and solid, hypoechoic, wider than tall nodule with smooth margin without echogenic foci (TR3). IMPRESSION: 1. Thyroid nodules. Ultrasound-guided fine needle aspiration of the 2.1 cm left thyroid nodule is rec ommended. Reviewed, dictated and finalized at location A. IMPRESSION: 1. Thyroid nodules. Ultrasound-guided fine needle aspiration of the 2.1 cm left thyroid nodule is recommended.
== END 2023-12-15 10:46 | disposition home or self-care (01) ==
PROVIDERS: PCP Family Medicine; Visit Provider Student in an Organized Health Care Education/Training Program
DX: E04.2 Nontoxic multinodular goiter (principal)
CPT/HCPCS: 76536

== ENCOUNTER 2024-02-14 11:43 | Outpatient (CLI) | payer OTHER, SELFPAY ==
[2024-02-17 03:49] LABS: Iodine Serum/Plasma 63 mcg/L (52-109)
== END 2024-02-14 11:44 | disposition home or self-care (01) ==
PROVIDERS: PCP Family Medicine; Visit Provider Family Medicine
DX: Z01.89 Encounter for other specified special examinations (principal); E04.1 Nontoxic single thyroid nodule
CPT/HCPCS: 36415; 82542; 83735

== ENCOUNTER 2024-02-15 12:48 | Outpatient (CLI) | payer OTHER, SELFPAY ==
--- NOTE | ~2024-02-15 | US_ITS ---
EXAMINATION: US FNA w image guidance DATE: 02/15/2024 13:50 INDICATION: Nontoxic single thyroid nodule TECHNIQUE: A time-out was performed to verify the patient's name, date of , and procedure to be performed . The procedure and its benefits and risks were discussed with the patient. Risks specifically discus sed included bleeding and infection. The patient understood the risks and agreed to proceed. The neck was prepped and draped in the usual sterile manner. 3 mL 1% lidocaine was used for local anesthesia . 6 passes were made with a 25G needle into the lesion. A 7 pass was made with a 22G needle into the lesion. Appropriate needle location was documented with continuous sonographic guidance. A sterile bandage was applied. There were no immediate complications. FINDINGS: Grayscale ultrasound images demonstrate biopsy needles advanced into a 2.0 cm hypoechoic nodule at th e inferior left thyroid lobe. The lesion demonstrating easily deformable peripheral margin at the sit e of needle entry suggesting a complex cystic lesion. IMPRESSION: 1. Successful ultrasound-guided fine needle aspiration of the 2.0 cm TI RADS 4 left thyroid nodule o f concern. Reviewed, dictated and finalized at location A. IMPRESSION: 1. Successful ultrasound-guided fine needle aspiration of the 2.0 cm TI RADS 4 left thyroid nodule of concern.
== END 2024-02-15 12:49 | disposition home or self-care (01) ==
PROVIDERS: PCP Family Medicine; Visit Provider Student in an Organized Health Care Education/Training Program
DX: E04.1 Nontoxic single thyroid nodule (principal)
CPT/HCPCS: 10005; 88172; 88173; 88177; 88305

== ENCOUNTER 2024-03-31 10:04 | Outpatient (CLI) | payer OTHER, SELFPAY ==
[2024-03-31 13:58] LABS: Alanine Aminotransferase 42 U/L (6-50); Albumin Level 4.1 g/dL (3.5-5.1); Alkaline Phosphatase 54 U/L (38-126); Anion Gap 2 mmol/L (4-12); Aspartate Amino Transferase 105 U/L (17-59); Bilirubin,Total 0.9 mg/dL (0.2-1.3); Blood Urea Nitrogen 15 mg/dL (9-20); Calcium 9.2 mg/dL (8.4-10.2); Carbon Dioxide 29 mmol/L (22-30); Chloride 107 mmol/L (98-107); Cholesterol 221 mg/dL (0-200); Estimated Glomerular Filt Rate > 60; Glucose 83 mg/dL (65-110); HDL Direct 73 mg/dL; Potassium 3.8 mmol/L (3.4-5.0); Sodium 138 mmol/L (137-145); Triglycerides 52 mg/dL (<150)
[2024-03-31 14:09] LABS: LDL Cholesterol Direct 106 mg/dL
[2024-03-31 14:56] LABS: Prostate Specific Antigen 0.5 ng/mL (< OR = 4.0)
[2024-03-31 14:58] LABS: Hepatitis C Virus Antibody Negative (Negative)
[2024-04-01 07:38] LABS: CRP, High Sensitivity 0.3 mg/L
== END 2024-03-31 10:05 | disposition home or self-care (01) ==
PROVIDERS: Family Medicine; PCP Family Medicine; Visit Provider Family Medicine
DX: Z12.5 Encounter for screening for malignant neoplasm of prostate (principal); I25.10 Atherosclerotic heart disease of native coronary artery without angina pectoris; E04.1 Nontoxic single thyroid nodule; Z11.59 Encounter for screening for other viral diseases
CPT/HCPCS: 36415; 80053; 80061; 82172; 84153; 84443; 86141; 86803; G0103

== ENCOUNTER 2024-05-05 10:49 | Outpatient (CLI) | payer OTHER, SELFPAY ==
--- NOTE | 2024-05-05 11:01 | EST_ITS ---
Patient Info Name: Justin Michelle Age: 78 years : 1945 Gender: Male Ht: 70 in Wt: 170 lbs BSA: 1.96 m2 HR: 122 bpm BP: 149 / 83 mmHg Heart Rhythm: Atrial Fibrillation Exam Date: 05/05/2024 11:17 AM Exam Location: Echo Lab Patient Status: Outpatient Admit Date: 05/05/2024 Staff Ordering Physician: Sai Rasmussen DO Attending Provider: Sai Rasmussen DO Exercise Technologist: Inocencia Javed RDCS Exercise Physician: Sai Rasmussen DO Exam Type: CA stress test treadmill Study Info A treadmill exercise stress test was performed. Summary 1. 1. Negative Maximiliano exercise stress test for ischemic ST changes by ECG criteria. 2. 2. Reduced functional capacity, achieving 6.5 METs of workload. 3. 3. Baseline hypertension. 4. 4. Rapid HR response to exercise. 5. 5. Appropriate HR recovery at 1 minute post exercise. 6. 6. No imaging with stress testing. 7. 7. Patient informed of the above results. Protocol: Maximiliano Stress ECG Details Stage: REST Duration (min): 1 min : 39 sec Speed (mph): 0.0 Grade (%): 0 HR (bpm): 84 SBP (mmHg): 149 DBP (mmHg): 83 METS: --- Stage: REST Duration (min): 7 min : 39 sec Speed (mph): 0.0 Grade (%): 0 HR (bpm): 95 SBP (mmHg): 149 DBP (mmHg): 83 METS: --- Stage: STAGE 1 Duration (min): 1 min : 0 sec Speed (mph): 1.7 Grade (%): 10 HR (bpm): 116 SBP (mmHg): 149 DBP (mmHg): 83 METS: --- Stage: STAGE 1 Duration (min): 2 min : 0 sec Speed (mph): 1.7 Grade (%): 10 HR (bpm): 142 SBP (mmHg): 149 DBP (mmHg): 83 METS: --- Stage: STAGE 1 Duration (min): 3 min : 0 sec Speed (mph): 1.7 Grade (%): 10 HR (bpm): 141 SBP (mmHg): 192 DBP (mmHg): 85 METS: --- Stage: STAGE 2 Duration (min): 1 min : 0 sec Speed (mph): 2.5 Grade (%): 12 HR (bpm): 145 SBP (mmHg): 192 DBP (mmHg): 85 METS: --- Stage: STAGE 2 Duration (min): 1 min : 0 sec Speed (mph): 2.5 Grade (%): 12 HR (bpm): 148 SBP (mmHg): 192 DBP (mmHg): 85 METS: --- Stage: RECOVERY Duration (min): 0 min : 59 sec Speed (mph): 0.0 Grade (%): 0 HR (bpm): 132 SBP (mmHg): 194 DBP (mmHg): 88 METS: --- Stage: RECOVERY Duration (min): 1 min : 59 sec Speed (mph): 0.0 Grade (%): 0 HR (bpm): 97 SBP (mmHg): 194 DBP (mmHg): 88 METS: --- Stage: RECOVERY Duration (min): 2 min : 59 sec Speed (mph): 0.0 Grade (%): 0 HR (bpm): 97 SBP (mmHg): 182 DBP (mmHg): 94 METS: --- Stage: RECOVERY Duration (min): 3 min : 2 sec Speed (mph): 0.0 Grade (%): 0 HR (bpm): 96 SBP (mmHg): 182 DBP (mmHg): 94 METS: --- Rest HR: 95 bpm Peak HR: 161 bpm Rest Sys BP: 149 mmHg Peak Sys BP: 194 mmHg Max Pred HR: 144 bpm % Max Pred HR: 112 % Target HR: 122 bpm Max RPP: 31,234 bpm*mmHg Peterson Score: -6 Termination Reason: Reached target heart rate or workload, Maximum HR achieved Cardiac Symptoms: Shortness of breath Max ST Seg Deviation: -2.10 mm Total Time: 4 min : 0 sec Rest Shaw BP: 83 mmHg Peak Shaw BP: 88 mmHg Angina Score: None Total METS: 6.5 Resting ECG Atrial fibrillation. Stress ECG No ST changes. Arrhythmias No other arrhythmias. Report Signatures
== END 2024-05-05 10:50 | disposition home or self-care (01) ==
PROVIDERS: PCP Family Medicine; Visit Provider Internal Medicine Cardiovascular Disease
DX: I48.19 Other persistent atrial fibrillation (principal)
CPT/HCPCS: 93017

== ENCOUNTER 2025-01-17 10:37 | Outpatient (CLI) | payer OTHER, SELFPAY ==
--- OUTSIDE RECORDS SUMMARY | 2025-01-17 11:19 | XMS_ITS | Clinical Summary ---
Author Organization [facility] [address] [facility] [address] [place] [address] Care Team Providers Care Hotel Staff Member Name Role Phone Sky Mendoza MD Primary Care Provider [phone] Allergies No known active allergies Medications Eliquis 5 mg tablet Take 1 tablet (5 mg total) by mouth 2 (two) times a day 08/05/2024 Active Active Problems Problem Noted Date Diagnosed Date Coronary artery disease invo lving [place] coronary artery of [place] heart without angina pectoris 08/23/2024 Afib 08/23/2024 Nontoxic single thyroid nodule 08/23/2024 Family History Medical History Relation Name Comments Heart failure Father Cancer Mother Relation Name Status Comments Father Mother Social History Tobacco Use Types Packs/Day Years Used Date Smoking Tobacco: Never Tobacco Cessation:Counseling Given: Not Answered Sex and Gender Information Value Date Recorded Sex Assigned at Not on file 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 Gender Identity Not on file Sexual Orientation Not on file Obstetrics History Last Filed Vital Signs Vital Sign Reading Time Taken Comments Blood Pressure 151/87 08/23/2024 9:16 AM CDT Pulse 54 08/23/2024 9:16 AM CDT Temperature 36.7 C (98.1 F) 08/23/2024 9:16 AM CDT Respiratory Rate - - Oxygen Saturation - - Inhaled Oxygen Concentration - - Weight 80.3 kg (177 lb) 08/23/2024 9:16 AM CDT Height 177.8 cm (5' 10) 08/23/2024 9:16 AM CDT Body Mass Index 25.4 08/23/2024 9:16 AM CDT Plan of Treatment Health Maintenance Due Date Last Done Comments Depression Screening 1945 Fall Risk Assessment 1945 Hepatitis C Screening 1945 Hepatitis B Screening 09[birth year]06/1963 Well Visit 65+ 09/06/2012 Pneumococcal vaccine 65+ (2 of 2 - PCV) 04/05/2019 04/05/2018 DTaP/Tdap/Td Vaccine (1 - Tdap) 04/05/2020 0 Covid-19 Vaccine (4 - 2024- season) 2024 01/12/2021, 06/17/2020, 05/25/2020 Influenza Vaccine (#1) 2024 Zoster Vaccine Completed 07/07/2021, 03/31/2021 Insurance [employer] PPO Care Teams Hotel Staff Member Relationship Specialty Start Date End Date Sky Mendoza MD [facility] [address] [facility] [address] PCP - General Family Medicine 07/05/23
[2025-01-17 13:00] LABS: Hematocrit 41.2 % (42.0-52.0); Hemoglobin 13.1 g/dL (14.0-18.0); Immature Granulocyte Percent A 0.2 % (0-0.5); Lymphocytes Absolute Auto 2.15 K/mm3 (0.9-3.2); Mean Corpuscular HGB Conc 31.8 g/dl (32-36); Mean Corpuscular Hemoglobin 29.8 pg (26-34); Mean Corpuscular Volume 93.6 fl (80-100); Nucleated Red Blood Cells Absolute Auto 0.000 K/mm3 (0.0-0.012); Nucleated Red Blood Cells Perc 0.0 % (0.0-0.2); Platelet Count Result 210 k/mm3 (150-375); Red Blood Count 4.40 M/mm3 (4.6-6.20); White Blood Count 5.3 K/mm3 (4.5-10.0)
[2025-01-17 13:08] LABS: Alanine Aminotransferase 42 U/L (6-50); Albumin Level 3.8 g/dL (3.5-5.1); Alkaline Phosphatase 57 U/L (38-126); Anion Gap 5 mmol/L (4-12); Aspartate Amino Transferase 80 U/L (17-59); Bilirubin,Total 0.5 mg/dL (0.2-1.3); Blood Urea Nitrogen 13 mg/dL (9-20); Calcium 8.7 mg/dL (8.4-10.2); Carbon Dioxide 27 mmol/L (22-30); Chloride 104 mmol/L (98-107); Cholesterol 157 mg/dL (0-200); Estimated Glomerular Filt Rate > 60; Glucose 89 mg/dL (65-110); HDL Direct 53 mg/dL; Potassium 4.1 mmol/L (3.4-5.0); Sodium 136 mmol/L (137-145); Total Protein 6.8 g/dL (6.3-8.2); Triglycerides 40 mg/dL (<150)
[2025-01-17 13:45] LABS: Prostate Specific Antigen 0.5 ng/mL (< OR = 4.0); Thyroid Stimulating Hormone 2.270 uIU/mL (0.465-4.680)
== END 2025-01-17 10:38 | disposition home or self-care (01) ==
LOC: ANHGOSHLAB 10:38
PROVIDERS: PCP Family Medicine; Visit Provider Family Medicine
DX: I10 Essential (primary) hypertension (principal); E78.2 Mixed hyperlipidemia; Z12.5 Encounter for screening for malignant neoplasm of prostate; D72.821 Monocytosis (symptomatic)
CPT/HCPCS: 36415; 80053; 80061; 84153; 84443; 85025; G0103